=== PATIENT | male | born 1990 | race Hispanic/Latino ===

== ENCOUNTER 2020-11-12 12:54 | Emergency (ER) | payer OTHER ==
[~2020-11-12] VITALS: Ht 162.6 cm; Wt 70.0 kg
[2020-11-12] MEDS ORDERED: CEPHALEXIN500 M1 PO (13:20)
[2020-11-12 15:16] VITALS: BP 164/104
== END 2020-11-12 15:16 | disposition home or self-care (01) | DRG 605 ==
LOC: ED 12:54
PROC: 0HQGXZZ Repair Left Hand Skin, External Approach (ICD-10-PCS; principal; 2020-11-12)
DX: S61.112A Laceration without foreign body of left thumb with damage to nail, initial encounter (principal); S62.631A Displaced fracture of distal phalanx of left index finger, initial encounter for closed fracture; W20.8XXA Other cause of strike by thrown, projected or falling object, initial encounter; Y93.89 Activity, other specified; Y92.89 Other specified places as the place of occurrence of the external cause; Y99.0 Civilian activity done for income or pay

== ENCOUNTER 2020-11-20 16:29 | Emergency (ER) | payer SELFPAY ==
[~2020-11-20] VITALS: Ht 162.6 cm; Wt 77.3 kg
[~2020-11-20 16:29] MED LIST: CEPHALEXIN500 M1 PO
[2020-11-20 17:44] VITALS: BP 139/96
== END 2020-11-20 18:26 | disposition left against medical advice (07) | DRG 951 ==
LOC: ED 16:29 → LWOBS 18:26
DX: Z53.21 Procedure and treatment not carried out due to patient leaving prior to being seen by health care provider (principal)

== ENCOUNTER 2020-11-22 10:57 | Emergency (ER) | payer OTHER ==
[~2020-11-22] VITALS: Ht 165.1 cm; Wt 77.0 kg
[2020-11-22 11:35] VITALS: BP 130/93
== END 2020-11-22 11:41 | disposition home or self-care (01) | DRG 950 ==
LOC: ED 10:57
DX: S61.012D Laceration without foreign body of left thumb without damage to nail, subsequent encounter (principal); X58.XXXD Exposure to other specified factors, subsequent encounter